=== PATIENT | male | born 1980 | race African-American/Black ===

== ENCOUNTER 2016-07-18 08:25 | Outpatient (CLI) | payer OTHER ==
[~2016-07-18] VITALS: Ht 172.7 cm; Wt 93.6 kg
--- NOTE | ~2016-07-18 | HEMODYNAMI ---
PATIENT:HARESH TENA MEDICAL RECORD: [id number] : 82 LOCATION:[facility] ADMISSION DATE: 07/18/16 Generatedon:07/18/201611:30 Patient name: HARESH TENA Patient #: [id number] SSN: : 1980 Date of study: 07/18/2016 Page: Of Hemodynamic Procedure Report Patient Data Patient Demographics Procedure consent was obtained First Name: HARESH Gender: Male Last Name: MALLIKA : 1980 Middle Initial: RAY Age: 35 year(s) Patient #: [id number] Race: Black Additional ID: [id number] Contact details [address]: [address] [place] [address] State: [place] City: [place] Zip code: [address] Admission Admission Data Admission Date: 07/18/2016 Admission Time: 8:25 Admit Source: Other Lab Results Lab Result Date: 07/18/2016 Lab Result Time: 0:00 Biochemistry Name Units Result Min Max BUN mg/dl 15 --(--*-)-- 7 18 Creatinine mg/dl 1.3 --(---*)-- 0.6 1.3 CBC Name Units Result Min Max Hemoglobin g/dl 14.9 --(-*--)-- 13.5 17.5 Procedure Procedure Types Cath Procedure Diagnostic Procedure [facility] w/Coronaries Miscellaneous Procedures Moderate Sedation up to 30 minutes Procedure Description Procedure Date Procedure Date: 07/18/2016 Procedure Start Time: 11:04 Procedure End Time: 11:29 Procedure Staff Name Function Dayo Mccabe MD Performing Physician Mag William RT Scrub Nuno Triana RN Nurse Víctor Mcnamara RT Monitor Procedure Data Cath Procedure Fluoroscopy Diagnostic fluoroscopy Total fluoroscopy Time: 6.3 time: 6.3 min min Diagnostic fluoroscopy Total fluoroscopy dose: 790 dose: 790 mGy mGy Contrast Material Contrast Material Type Amount (ml) Isovue 300 62 Entry Location Entry Primary Successful Side Size Upsize Upsize Entry Closure Bradford ccessful Closure Location (Fr) 1 (Fr) 2 (Fr) Remarks Device Remarks Radial Right 6 Fr Mechanical artery Short Compression Femoral Right 5 Fr Exoseal artery Estimated blood loss: 5 ml Diagnostic catheters Device Type Used For End Catheter Placement Terumo 5Fr Sal 110cm Procedure catheter Terumo 5Fr Anna 110cm Procedure catheter Terumo 5Fr Sal 110cm Procedure catheter Diagnostic Infinity 5Fr Procedure JL 4.0 catheter Diagnostic Infinity 5Fr Procedure 3DRC catheter Procedure Complications No complications Procedure Medications Medication Administration Route Dosage Oxygen NC 2 l/min Lidocaine 2% added to field 20 Heparin Flush Bag added to field 2 bags (1000units/500ml NS) 0.9% NaCl I.V. 100 ml/hr Versed I.V. 1 mg Fentanyl I.V. 50 mcg Versed I.V. 1 mg Fentanyl I.V. 50 mcg Versed I.V. 1 mg Fentanyl I.V. 50 mcg Radial Cocktail I.A. 1 syringe (Verapomil 2mg/Nitro 400mcg/Heparin 1500units) Versed I.V. 1 mg Fentanyl I.V. 50 mcg Hemodynamics Rest HGB: 14.9 (g/dl) Heart Rate: 77 (bpm) Pressure Samples Time Site Value (mmHg) Purpose Heart Use Rate(bpm) 11:10 LV 128/3,18 Snapshot 62 11:11 AO 120/79(92) Pullback 71 11:11 LV 127/10,10 Pullback 71 Gradients Valve Time Site 1 Site 2 Mean SEP/DFP Peak To Heart Use (mmHg) (sec/min) Peak Rate (mmHg) (bpm) Aortic 11:11 LV AO 26 6 7 71 127/10,10 120/79(92) Calculations Valve P-P Mean Valve Index Valve Source Name Gradient Area Flow (cm2) Aortic 7 26 7 26 Snapshots Pre Cath Intra NCS Post Cath Vital Signs Time Heart Resp SPO2 NIBP (mmHg) Rhythm Pain Sedation Rate (ipm) (%) Status Level (bpm) 10:48:38 86 50 99 146/106(120) NSR 0 (11) 10(A) , No pain 10:52:52 66 18 100 147/97(119) NSR 0 (11) 10(A) , No pain 10:57:10 57 17 98 135/78(97) NSR 0 (11) 10(A) , No pain 11:01:24 56 19 97 134/71(96) NSR 0 (11) 9(A) , No pain 11:05:40 57 16 97 137/73(101) NSR 0 (11) 9(A) , No pain 11:09:56 63 15 96 122/73(95) NSR 0 (11) 9(A) , No pain 11:14:08 64 17 96 121/63(97) NSR 0 (11) 9(A) , No pain 11:18:20 59 20 97 124/66(102) NSR 0 (11) 9(A) , No pain 11:23:38 65 16 98 126/71(101) NSR 0 (11) 9(A) , No pain 11:27:50 59 16 97 123/67(97) NSR 0 (11) 10(A) , No pain Medications Time Medication Route Dose Verified Delivered Reason Notes Effectiveness by by 10:52:02 Oxygen NC 2 l/min Dayo Buffie used for Eliot Triana RN procedure 10:52:08 Lidocaine 2% added 20ml Dayo Dayo for local to vial Eliot Mccabe MD anesthetic field 10:52:14 Heparin Flush added 2 bags Dayo Dayo used for Bag to Eliot Mccabe MD procedure (1000units/500ml field NS) 10:52:22 0.9% NaCl I.V. 100 Dayo Buffie Per ml/hr Eliot Triana RN physician 10:56:20 Versed I.V. 1 mg Dayo Buffie for sedation Eliot Triana RN 10:56:27 Fentanyl I.V. 50 mcg Dayo Buffie for sedation Eliot Triana RN 10:59:37 Versed I.V. 1 mg Dayo Buffie for sedation Eliot Triana RN 10:59:41 Fentanyl I.V. 50 mcg Dayo Buffie for sedation Eliot Triana RN 11:04:56 Versed I.V. 1 mg Dayo Buffie for sedation Eliot Triana RN 11:04:59 Fentanyl I.V. 50 mcg Dayo Buffie for sedation Eliot Triana RN 11:06:13 Radial Cocktail I.A. 1 Dayo Dayo for (Verapomil syringe Eliot Mccabe MD vasodilation 2mg/Nitro 400mcg/Heparin 1500units) 11:10:59 Versed I.V. 1 mg Dayo Dayo for sedation Eliot Mccabe MD 11:11:03 Fentanyl I.V. 50 mcg Dayo Dayo for sedation Eliot Mccabe MD Procedure Log Time Note 10:23:04 Informed consent obtained and on chart 10:23:08 Admit Source: Other 10:25:24 Diagnostic Cath status Elective 10:25:26 Nuno Triana RN sent for patient. Start room use. 10:25:27 Time tracking: Regular hours 10:25:31 Plan of Care:Hemodynamics will remain stable., Cardiac rhythm will remain stable., Comfort level will be maintained., Respiratory function will remain adequate., Patient/ family verbilizes understanding of procedure., Procedure tolerated without complication., Recovers from procedure without complications.. 10:38:17 Patient received from Pre/Post Procedure Room to CCL 2 Alert and oriented. Tansferred to table in Supine position. 10:38:22 Warm blankets applied, and caden hugger turned on for patient comfort. 10:38:24 Correct patient and procedure confirmed by team. 10:43:26 Pre-procedure instructions explained to patient. 10:43:29 Pre-op teaching completed and patient verbalized understanding. 10:43:30 Family in waiting room. 10:43:32 Patient NPO since Midnight. 10:43:38 Is the patient allergic to Iodine/contrast media? No. 10:43:41 Is patient on blood thinner?No 10:43:44 Patient diabetic? No. 10:43:47 Snore? No 10:43:50 Sleep apnea? No 10:44:10 Airway obstruction? No sarcoidosis 10:44:14 Dentures? No ? 10:44:23 Patient pain scale 0/10 ?. 10:44:34 IV patent on arrival in left forearm with 0.9% NaCl at O. 10:45:12 Lab Result : BUN 15 mg/dl 10:45:12 Lab Result : Hemoglobin 14.9 g/dl 10:45:12 Lab Result : Creatinine 1.3 mg/dl 10:45:16 Lab results completed and on chart. 10:45:21 Right Radial & Right Groin area was prepped with chlora-prep and draped in sterile fashion 10:45:22 Alarms reviewed by RRasheed N. 10:45:23 Sharps counted by scrub and verified by R.N. 10:47:29 ECG and BP/O2 sat monitors applied to patient. 10:47:33 Vital chart was started 10:47:46 H&P Date Dictated: 07/18/2016 Within 30 days and on chart.. 10:47:54 Rhythm: sinus rhythm 10:47:55 Full Disclosure recording started 10:48:04 Baseline sample Acquired. 10:52:02 Oxygen 2 l/min NC was administered by Nuno Triana RN; used for procedure; 10:52:08 Lidocaine 2% 20ml vial added to field was administered by Dayo Mccabe MD; for local anesthetic; 10:52:14 Heparin Flush Bag (1000units/500ml NS) 2 bags added to field was administered by Dayo Mccabe MD; used for procedure; 10:52:22 0.9% NaCl 100 ml/hr I.V. was administered by Nuno Triana RN; Per physician; 10:55:13 Use device set Radial Dx 10:55:16 MBrace Wrist Support opened to sterile field. 10:55:16 Tegaderm 4 x 4 opened to sterile field. 10:55:18 Acist Syringe opened to sterile field. 10:55:18 Medline Cath Pack opened to sterile field. 10:55:21 Acist Manifold opened to sterile field. 10:55:21 Acist Hand Control opened to sterile field. 10:55:22 Bag Decanter opened to sterile field. 10:55:23 Terumo 6Fr Slender Glidesheath opened to sterile field. 10:55:24 St Gonzalo 260cm J .035 wire opened to sterile field. 10:55:35 Physician arrived 10:55:35 --------ALL STOP TIME OUT------ 10:55:36 Final Timeout: patient, procedure, and site verified with staff and physician. All members of the team are in agreement. 10:55:38 Right Radial & Right Groin site verified by team. 10:55:42 Physical assessment completed. ASA score P 2 - A patient with mild systemic disease as per Dayo Mccabe MD. 10:55:45 Sedation plan: IV Moderate Sedation Versed, Fentanyl 10:56:20 Versed 1 mg I.V. was administered by Nuno Triana RN; for sedation; 10:56:27 Fentanyl 50 mcg I.V. was administered by Nuno Triana RN; for sedation; 10:59:37 Versed 1 mg I.V. was administered by Nuno Triana RN; for sedation; 10:59:41 Fentanyl 50 mcg I.V. was administered by Nuno Triana RN; for sedation; 11:02:34 Zero performed for pressure channel P1 11:04:45 Procedure started. 11:04:52 Local anesthetic to right radial artery with Lidocaine 2% by Dayo Mccabe MD.INITIAL ACCESS ONLY 11:04:56 Versed 1 mg I.V. was administered by Nuno Triana RN; for sedation; 11:04:59 Fentanyl 50 mcg I.V. was administered by Nuno Triana RN; for sedation; 11:05:03 Cook 21G 4cm Radial Needle opened to sterile field. 11:05:18 A 6 Fr Short sheath was inserted into the Right Radial artery 11:05:58 A Terumo 5Fr Sal 110cm catheter was advanced over the wire and used for Procedure. 11:06:13 Radial Cocktail (Verapomil 2mg/Nitro 400mcg/Heparin 1500units) 1 syringe I.A. was administered by Dayo Mccabe MD; for vasodilation; 11:08:24 Catheter removed. 11:08:31 A Terumo 5Fr Anna 110cm catheter was advanced over the wire and used for Procedure. 11:09:20 LV hemodynamics recorded. 11:10:32 LV gram done using JIN 11:10:35 Injector settings: Ml/sec: 5, Volume: 15, 11:10:44 EF : 60 % 11:10:59 Versed 1 mg I.V. was administered by Dayo Mccabe MD; for sedation; 11:11:03 Fentanyl 50 mcg I.V. was administered by Dayo Mccabe MD; for sedation; 11:14:23 Catheter removed. unable to cannulate vessel. 11:14:31 A Terumo 5Fr Sal 110cm catheter was advanced over the wire and used for Procedure. 11:15:14 Catheter removed. unable to cannulate vessel. 11:16:11 Not able to cannulate the arteries from the radial approach. Moving to femoral approach 11:16:17 Local anesthetic to right femoral artery with Lidocaine 2% by Dayo Mccabe MD.ADDITIONAL ACCESS 11:16:30 Terumo 5Fr [place] Sheath opened to sterile field. 11:16:35 A 5 Fr sheath was inserted into the Right Femoral artery 11:18:34 A Diagnostic Infinity 5Fr JL 4.0 catheter was advanced over the wire and used for Procedure. 11:20:50 LCA angiography performed. 11:22:03 Catheter removed. 11:22:53 A Diagnostic Infinity 5Fr 3DRC catheter was advanced over the wire and used for Procedure. 11:23:13 RCA angiography performed. 11:23:49 Catheter removed. 11:24:06 Cordis 5Fr Exoseal opened to sterile field. 11:24:25 Terumo TR Band Standard opened to sterile field. 11:24:42 Sheath removed intact; hemostasis achieved with Mechanical Compression to the Right Radial artery. 11:24:52 Sheath removed intact; hemostasis achieved with Exoseal to the Right Femoral artery. 11:24:54 Procedure ended.(Physican Out) 11:26:18 Fluoroscopy time 06.30 minutes. 11:26:24 Fluoroscopy dose: 790 mGy 11:26:24 Flurop Dose total: 790 11:26:34 Contrast amount:Isovue 300 62ml. 11:26:35 Sharps counted by scrub and verified by R.N. 11:26:41 TR band inflated with 12cc of air. 11:26:42 Insertion/operative site no bleeding no hematoma. 11:26:45 Post-op/insertion site Right Femoral artery dressed using a 4 x 4 and Tegaderm. 11:26:48 Post right femoral artery:stable, soft, clean and dry 11:26:49 Post Procedure Pulses reassessed and unchanged 11:26:52 Post-procedure physical assessment completed. ASA score P 2 - A patient with mild systemic disease as per Dayo Mccabe MD. 11:26:54 Post procedure rhythm: unchanged. 11:26:56 Estimated blood loss: 5 ml 11:26:57 Post procedure instruction explained to patient.Patient verbalizes understanding. 11:26:58 Patient needs reinforcement of post procedure teaching. 11:27:33 Procedure type changed to Cath procedure, Diagnostic procedure, LHC, LHC w/Coronaries, Miscellaneous Procedures, Moderate Sedation up to 30 minutes 11:29:22 Procedure and supply charges have been captured, reviewed, submitted and are correct. 11:29:24 Procedure Complication : No complications 11:29:25 Vital chart was stopped 11:29:25 See physician's report for complete and final results. 11:29:30 Report given to Pre/Post Procedure Room. 11:29:32 Patient transfered to Pre/Post Procedure Room with Stretcher. 11:29:34 Procedure ended. 11:29:34 Full Disclosure recording stopped 11:29:40 End room use (Document Last) Device Usage Item Name Manufacture Quantity Catalog Hospital Part Current Minimal Lot# / Number Charge Number Stock Stock Serial# Code Marti [facility] 1 [id number] 338129 27438 686852 5 Wrist Vascular Support Dynamics Tegaderm 4 3M 1 [id number] 815650 768081 5 x 4 Acist Acist 1 22622 725341 743500 418662 20 Syringe [employer] Inc Medline Cardinal 1 [id number] 021967 39102 602728 5 Cath Pack Health Acist Acist 1 86262 730953 386979 602714 5 Manifold [employer] Inc Acist Hand Acist 1 54169 887959 235308 421782 5 Control Medical Systems Inc Bag Microtek 1 2002S 196527 65335 363466 5 Decanter [employer] Inc. Terumo 6Fr Terumo 1 [id number] 766234 259173 466863 [address] St Gonzalo 1 465389 925727 393516 004464 30 260cm J .035 wire Cook 21G Cook Medical 1 [id number] 545965 421150 299339 5 4cm Radial Needle Terumo 5Fr Terumo 1 40-5023 075382 974029 587712 5 Sal 110cm catheter Terumo 5Fr Terumo 1 40-5013 046715 232687 296627 5 Anna 110cm catheter Terumo 5Fr Terumo 1 [id number] 231521 902426 917636 40 [place] Sheath Diagnostic Cardinal 1 [id number] 332849 547169 629854 10 [facility] 5Fr JL 4.0 catheter Diagnostic Cardinal 1 [id number] 747548 265103 589694 9 [facility] 5Fr 3DRC catheter Cordis 5Fr Cardinal 1 EX500 296259 036424 672724 10 Exoseal Health Terumo TR Terumo 1 [id number] 252700 275582 546519 40 Band Standard Signature Audit [place] Stage Time Signature Unsigned Intra-Procedure 07/18/2016 Víctor Mcnamara 11:30:18 AM RT(R) Signatures Monitor : Víctor Mcnamara RT Signature : Date : Time : [id number] [place] [address]
[2016-07-18] MEDS ORDERED: NORVASC10 MG PO (08:59)
[2016-07-18] MEDS ORDERED: CATAPRES0.1 MG PO (09:00)
[2016-07-18] MEDS ORDERED: OMEPRAZOLE40 MG PO (09:01)
[2016-07-18 09:11] VITALS: BP 139/83; Ht 172.7 cm; Wt 93.6 kg
[2016-07-18 09:37] LABS: BASOPHILS 1.3 % (0-2); EOSINOPHILS 6.9 % (0-7); HEMATOCRIT 44.4 % (42.0-54.0); HEMOGLOBIN 14.9 g/dL (13.5-17.5); LYMPHOCYTES 31.8 % (15-50); MCH 24.4 pg (26.0-34.0); MCHC 33.6 g/dL (31.0-37.0); MCV 72.8 fL (80.0-100.0); MONOCYTES 8.5 % (2-11); NEUTROPHILS 51.5 % (40-80); PLATELET COUNT 140 10x3/uL (130-400); RDW 14.4 % (11.5-14.5); WBC 3.1 10x3/uL (4.8-10.8)
[2016-07-18 09:48] LABS: ANION GAP 11.7 mmol/L (8-16); CALCIUM 9.2 mg/dL (8.5-10.1); CARBON DIOXIDE 29.2 mmol/L (21.0-32.0); CREATININE - SERUM 1.3 mg/dL (0.6-1.3); POTASSIUM - SERUM 4.9 mmol/L (3.5-5.1)
--- NOTE | 2016-07-18 12:00 | NUR ---
RESTING WITH EYES CLOSED, RIGHT GROIN CDI, NO HEMATOMA OR BLEEDING NOTED
--- NOTE | 2016-07-18 12:31 | NUR ---
NO CHANGES IN WRIST OR GROIN, NO BLEEDING
--- NOTE | 2016-07-19 13:26 | OP ---
PATIENT NAME: HARESH TENA MEDICAL RECORD: [id number] :82 LOCATION:D.CAT ADMISSION DATE: SURGEON: MAGDALENE RUIZ M.D. DATE OF OPERATION: 07/18/2016 REFERRING PHYSICIAN: Dr. Lake Daniels at [place], [place]. PROCEDURES PERFORMED: 1. Selective coronary angiography. 2. Left heart catheterization with ventriculogram. INDICATION: A 35-year-old gentleman presents with chest pain, abnormal stress test. EQUIPMENT USED: A 5-Romanian JL4, Mayo right, pigtail catheter. TECHNIQUE: A 5-Romanian sheath was inserted in retrograde fashion in the right common femoral artery. Next, selective coronary angiography was performed in standard 5-Romanian JL4 and Mayo right. Left heart catheterization performed using pigtail catheter. CORONARY ANATOMY: 1. Left main: Left main trunk is large in caliber. It gives rise to the LAD and circumflex. It is angiographically normal. 2. LAD: This is a large caliber vessel extending to the apex. It gives rise to a moderate caliber diagonal proximal segment. The LAD and diagonal are smooth-walled vessels and angiographically normal. 3. Circumflex: This vessel is moderate in caliber. It provides a lateral branch in the proximal segment. The circumflex and lateral branch are smooth-walled and angiographically normal. 4. Right coronary: This vessel is moderate in caliber and dominant. It provides the PDA and distal segment. This vessel is smooth-walled and angiographically normal. 5. Left ventricle: Left ventricle is normal in size and function. No wall motion abnormalities are seen. Estimated ejection fraction 60%. IMPRESSION: 1. Normal coronary arteries. 2. Normal left ventricular function. RECOMMENDATIONS: I suspect his chest pain is noncardiac in origin. His stress test was likely a false positive as his coronary arteries were normal. TRANSINT:[id number] Voice Confirmation ID: [id number] DOCUMENT ID: [id number] MAGDALENE RUIZ M.D. at 1326 CC: [id number] DICTATION DATE: 07/18/16 1133 INVESTMENT MANAGER: 07/19/16 0007 [facility] CLI 07/18/16 [place] [address]
== END 2016-07-18 14:30 | disposition home or self-care (01) ==
LOC: D.CATH 08:25
PROVIDERS: Internal Medicine Cardiovascular Disease
DX: R07.89 Other chest pain (principal); Z82.49 Family history of ischemic heart disease and other diseases of the circulatory system; I10 Essential (primary) hypertension; K21.9 Gastro-esophageal reflux disease without esophagitis; Z79.899 Other long term (current) drug therapy; R94.39 Abnormal result of other cardiovascular function study